=== PATIENT | male | born 1950 | race Caucasian/White ===

== ENCOUNTER → 2021-03-02 | Day surgery (SDC) | payer MEDICARE, BC ==
[~2021-03-02] MED LIST: Lactated Ringers 1,000 ML IV SCH; Phenylephrine 1% 10 MG/ML SDV ONE; Propofol 200 MG/20 ML SDV ONE; fentaNYL 100 MCG/2 ML SDV ONE
--- NOTE | 2021-03-02 08:37 | OR ---
DATE OF OPERATION: 03/02/2021 PREOPERATIVE DIAGNOSIS: HISTORY OF POLYPS. POSTOPERATIVE DIAGNOSIS: HISTORY OF POLYPS. SURGEON: Brandon Thurston MD PROCEDURE: DIAGNOSTIC COLONOSCOPY WITH SNARE POLYPECTOMY X1. ANESTHESIA: MAC. COMPLICATIONS: None. SPECIMEN: Small tubular adenoma, mid sigmoid colon. FINDINGS: 1. Full-length colonoscopy. 2. Moderate sigmoid diverticulosis. 3. Tubular adenoma, sigmoid colon, less than 0.5 cm. RECOMMENDATIONS: Followup colonoscopy in 5 years. INDICATIONS: The patient has a history of polyps. He was sent for a surveillance scope. DESCRIPTION OF PROCEDURE: The patient was prepped and draped, placed in the left lateral decubitus position. A lubricated Olympus colonoscope was inserted and easily advanced to the cecum. Direct visualization of ileocecal valve and appendiceal orifice was accomplished. The bowel prep was excellent. Upon withdrawal of the scope; cecum, ascending, transverse, and descending colons were completely benign. The patient had prominent diverticulosis throughout most of the sigmoid colon, at least moderate in severity. At around 45 cm, he had a small tubular adenoma, removed with a snare and suctioned into polyp trap #1 without difficulty. There were no other signs of colitis, polyps, masses, ulceration, or bleeding sites. No vascular abnormalities. The rectal vault was benign. Retroflexion showed prominent perianal hemorrhoid disease. Air was then suctioned. The scope removed without complication. DAVID/BARBER /[id number]
[2021-03-02 14:26] VITALS: BP 105/66; PULSE 58
== END ==
LOC: CC.SDS 06:54
PROVIDERS: ATTEND Family Medicine
DX: Z12.11 Encounter for screening for malignant neoplasm of colon (principal); D12.5 Benign neoplasm of sigmoid colon; K57.30 Diverticulosis of large intestine without perforation or abscess without bleeding; I10 Essential (primary) hypertension; E78.00 Pure hypercholesterolemia, unspecified; E55.9 Vitamin D deficiency, unspecified; N40.1 Benign prostatic hyperplasia with lower urinary tract symptoms; R35.1 Nocturia; Z98.890 Other specified postprocedural states; Z79.82 Long term (current) use of aspirin; Z79.899 Other long term (current) drug therapy; Z87.891 Personal history of nicotine dependence
CPT/HCPCS: 45385; J7120; J2370; J2704; J3010